=== PATIENT | female | born 1935 | race African-American/Black ===

== ENCOUNTER 2017-08-21 07:29 | Emergency (ER) | payer OTHER ==
[~2017-08-21] VITALS: Ht 162.6 cm; Wt 64.0 kg
[~2017-08-21 07:29] MED LIST: SIMV40TA5
[2017-08-21 12:28] VITALS: BP 112/66
== END 2017-08-21 12:45 | disposition home or self-care (01) ==
LOC: ER 07:47
DX: Z00.00 Encounter for general adult medical examination without abnormal findings (principal)
CPT/HCPCS: 99283